=== PATIENT | female | born 1985 | race Caucasian/White ===

== ENCOUNTER 2020-05-09 14:35 | Emergency (ER) | payer OTHER, SELFPAY ==
--- NOTE | ~2020-05-09 | XR_ITS ---
XR ankle LT min 3V 05/09/2020 15:15 INDICATION: Left ankle pain after fall PROCEDURE: 4 views left ankle COMPARISON: No prior studies for comparison. FINDINGS: Fracture, dislocation or subluxation is not identified. There is mild lateral soft tissue s welling. Ankle mortise intact. No foreign bodies are identified. IMPRESSION: 1: NO ACUTE BONE OR JOINT ABNORMALITY IDENTIFIED. Reviewed, dictated and finalized at location A.
[2020-05-09 14:53] VITALS: BP 136/69; PULSE 98; RESP 20; TEMP 37.4; O2SAT 100
--- NOTE | 2020-05-09 14:59 | ED.GENADULT ---
HPI - General Adult General Chief complaint: Extremity Injury, Lower Stated complaint: L/ankle pain Source: patient Mode of arrival: wheelchair History of Present Illness HPI narrative: Patient presents for evaluation of left ankle pain. She indicates that she twisted her ankle last night when she stepped in a hole . She currently has 5 out of 10 pain in the lateral aspect of her left ankle, described as sharp and shooting. She has a tingling sensation of all digits of the left foot without any numbness. She tried taking ibuprofen and Tylenol which helped her pain. Weightbearing worsens her pain. No additional complaints or concerns. Related Data Home Medications Medication Instructions Recorded Confirmed escitalopram oxalate 10 mg DAILY 05/09/20 05/09/20 Allergies Allergy/AdvReac Type Severity Reaction Status Date / Time No Known Allergies Allergy Verified 05/09/20 14:42 Review of Systems Review of Systems: Narrative: CONSTITUTIONAL: Denies fever, chills, or sweats. EYES: Denies visual changes, redness, or discharge. ENT: Denies rhinorrhea, congestion, sore throat, or otalgia. CARDIOVASCULAR: Denies chest pain, palpitations, or edema. RESPIRATORY: Denies cough or dyspnea. GASTROINTESTINAL: Denies abdominal pain, nausea, vomiting, or diarrhea. GENITOURINARY: Denies dysuria or hematuria. SKIN: Denies rash or itching. MUSCULOSKELETAL: Denies back pain or myalgia. Reports left ankle pain and swelling NEUROLOGIC: Denies headache, numbness, dizziness, or weakness. PSYCHIATRIC: Denies anxiety or depression. [facility] Past Medical History Medical History (Updated 05/09/20 @ 15:07 by LATHA Shaw, ) No significant past medical history Surgical History Surgical History History of open heart surgery History of tonsillectomy Family History Family History Grandparent Malignant neoplasm of prostate Family history of malignant neoplasm of brain Family history of coronary artery disease Family history of malignant neoplasm of urinary bladder Diabetes mellitus Mother Family history of atrial fibrillation Other Family history of malignant neoplasm of ovary Social History Social History Alcohol intake: current Gender identity (if verbalized by the patient): Female Exam Narrative: Exam Narrative: GENERAL: Well-appearing, well-nourished, and in no acute distress. HEAD: Normocephalic, atraumatic. EYES: PERRLA and EOMI. ENT: Nares clear, no rhinorrhea or epistaxis. Mucous membranes moist. Oropharynx without tonsillar hypertrophy exudate or other lesions. Bilateral TMs pearly whitt nonbulging NECK: Supple. No adenopathy or masses. No carotid bruits or JVD CHEST: Clear to auscultation. No respiratory distress. No wheezes rales or rhonchi HEART: Regular rate and rhythm. No murmur heard. Normal peripheral pulses. ABDOMEN: Soft, nontender, nondistended, normal active bowel sounds. EXTREMITIES: Able to dorsi and plantarflex the left foot. There is trace swelling noted over the left lateral malleolus. Tenderness over left lateral malleolus. No crepitus or obvious deformity SKIN: Warm, dry, no rash. NEURO: No focal deficits. Alert and oriented x3. PSYCH: Normal mood and affect. Course Vital Signs Vital signs: Vital Signs Temperature 37.4 C 05/09/20 14:53 Pulse Rate 98 05/09/20 14:53 Respiratory Rate 05/09/20 14:53 Blood Pressure 136/69 05/09/20 14:53 Pulse Oximetry 100 05/09/20 14:53 Temperature 37.4 C 05/09/20 14:53 Pulse Rate 98 05/09/20 14:53 Respiratory Rate 05/09/20 14:53 Blood Pressure 136/69 05/09/20 14:53 Pulse Oximetry 100 05/09/20 14:53 Medical Decision Making Vital Signs Vital Signs: Vital Signs Temperature 37.4 C 05/09/20 14:53 Pulse Rate 98 0
--- NOTE | 2020-05-09 15:31 | ED.GENADULT ---
HPI - General Adult General Chief complaint: Extremity Injury, Lower Stated complaint: L/ankle pain Source: patient Mode of arrival: wheelchair History of Present Illness HPI narrative: Patient presents for evaluation of left ankle pain. She indicates she twisted her ankle last night when she tripped in a hole . She did not hit her head or have loss of consciousness. She now reports pain in the left lateral ankle, rated 5 out of 10 in severity, described as sharp and shooting. She reports tingling sensation of all digits of her left foot without associated numbness. Weightbearing and ambulation make the pain worse. She took ibuprofen and tylenol which have helped reduce her pain. Related Data Home Medications Medication Instructions Recorded Confirmed escitalopram oxalate 10 mg DAILY 05/09/20 05/09/20 Allergies Allergy/AdvReac Type Severity Reaction Status Date / Time No Known Allergies Allergy Verified 05/09/20 14:42 Review of Systems Review of Systems: Narrative: CONSTITUTIONAL: Denies fever, chills, or sweats. EYES: Denies visual changes, redness, or discharge. ENT: Denies rhinorrhea, congestion, sore throat, or otalgia. CARDIOVASCULAR: Denies chest pain, palpitations, or edema. RESPIRATORY: Denies cough or dyspnea. GASTROINTESTINAL: Denies abdominal pain, nausea, vomiting, or diarrhea. GENITOURINARY: Denies dysuria or hematuria. SKIN: Denies rash or itching. MUSCULOSKELETAL: Denies back pain and myalgia. Reports left ankle pain and swelling NEUROLOGIC: Denies headache, numbness, dizziness, or weakness. PSYCHIATRIC: Denies anxiety or depression. [facility] Past Medical History Medical History No significant past medical history Surgical History Surgical History History of open heart surgery History of tonsillectomy Family History Family History Grandparent Malignant neoplasm of prostate Family history of malignant neoplasm of brain Family history of coronary artery disease Family history of malignant neoplasm of urinary bladder Diabetes mellitus Mother Family history of atrial fibrillation Other Family history of malignant neoplasm of ovary Social History Social History Alcohol intake: current Gender identity (if verbalized by the patient): Female Exam Narrative: Exam Narrative: GENERAL: Well-appearing, well-nourished, and in no acute distress. HEAD: Normocephalic, atraumatic. EYES: PERRLA and EOMI. ENT: Nares clear, no rhinorrhea or epistaxis. Mucous membranes moist. Oropharynx without tonsillar hypertrophy exudate or other lesions. Bilateral TMs pearly whitt nonbulging NECK: Supple. No adenopathy or masses. No carotid bruits or JVD CHEST: Clear to auscultation. No respiratory distress. No wheezes rales or rhonchi HEART: Regular rate and rhythm. No murmur heard. Normal peripheral pulses. ABDOMEN: Soft, nontender, nondistended, normal active bowel sounds. EXTREMITIES: Able to dorsi and plantarflex left foot. Trace swelling in left lateral ankle. Tenderness over left lateral malleolus. No crepitus or deformity SKIN: Warm, dry, no rash. NEURO: No focal deficits. Alert and oriented x3. PSYCH: Normal mood and affect. Course Course Emergency Course: Patient declined analgesics. X-ray negative for fracture. She already has a boot, crutches, and Caden wrap at home. Vital Signs Vital signs: Vital Signs Temperature 37.4 C 05/09/20 14:53 Pulse Rate 98 05/09/20 14:53 Respiratory Rate 05/09/20 14:53 Blood Pressure 136/69 05/09/20 14:53 Pulse Oximetry 100 05/09/20 14:53 Temperature 37.4 C 05/09/20 14:53 Pulse Rate 98 05/09/20 14:53 Respiratory Rate 05/09/20 14:53 Blood Pressure 136/69 05/09/20 14:53 Pulse Oxi
== END 2020-05-09 15:41 | disposition home or self-care (01) ==
PROVIDERS: Emergency Provider Nurse Practitioner
DX: S93.402A Sprain of unspecified ligament of left ankle, initial encounter (principal); S96.912A Strain of unspecified muscle and tendon at ankle and foot level, left foot, initial encounter; W17.2XXA Fall into hole, initial encounter
CPT/HCPCS: 73610; 99213; G0463

== ENCOUNTER 2024-11-17 14:52 | Outpatient (CLI) | payer BC, SELFPAY ==
[2024-11-17 15:42] LABS: Basophils Percent Auto 0.4 % (0.2-1.2); Eosinophils Absolute Auto 0.2 K/mm3 (0-0.3); Eosinophils Percent Auto 1.8 % (0-4.4); Hematocrit 43.4 % (37.0-47.0); Hemoglobin 14.1 g/dL (12.0-15.0); Immature Granulocyte Absolute 0.04 K/mm3 (0.00-0.031); Immature Granulocyte Percent A 0.4 % (0-0.5); Lymphocytes Absolute Auto 2.63 K/mm3 (0.9-3.2); Lymphocytes Percent Auto 28.8 % (18.3-44.2); Mean Corpuscular HGB Conc 32.5 g/dl (32-36); Mean Corpuscular Hemoglobin 30.6 pg (26-34); Mean Corpuscular Volume 94.1 fl (80-100); Mean Platelet Volume 10.7 fl (7.4-10.4); Monocytes Absolute Auto 0.7 K/mm3 (0.1-0.6); Monocytes Percent Auto 7.9 % (2.6-8.5); Neutrophils Absolute Auto 5.5 K/mm3 (1.3-6.7); Neutrophils Percent Auto 60.7 % (45.5-73.1); Platelet Count Result 251 k/mm3 (150-375); Red Blood Count 4.61 M/mm3 (4.2-5.4); White Blood Count 9.1 K/mm3 (4.5-10.0)
--- OUTSIDE RECORDS SUMMARY | 2024-11-17 17:37 | XMS_ITS | Encounter Summary ---
Author Organization [facility] Address [facility] [place] [address] Care Team Providers Care Multimedia Services Coordinator Name Role Phone Elizabet Cardoso Primary Care Provider [phone] Carrie Hamm MD Primary Care Provider [phone] Vanesa Li [facility] Primary Care Provider + Encounter Details Date Type Department Care Team (Late st Contact Info) Description 02/16/2022 [employer] Message Enc [facility] Medical Group Family & Internal Medicine [address] [address] [facility] Provider results Social History Tobacco Use Types Packs/Day Years Used Date Smoking Tobacco: Some Days Cigarettes 0.3 23.2 Started: 2001 Smokeless Tobacco: Never Comments:has smoked on and o ff since age 17 Alcohol Use Standard Drinks/Week Comments Not Currently 0 (1 standard drink = 0.6 oz pur e alcohol) social 1-2 drinks PHQ-2 Answer Date Recorded PHQ-2 Score - If the patient scores above 3, please move on to questions 3-9 2 02/07/2022 Comments No Sex and Gender Information Value Date Recorded Sex Assigned at Not on file Legal Sex Female 8:13 PM CDT Gender Identity Not on file Sexual Orientation Not on file COVID-19 Exposure Response Date Recorded In the last 10 days, have yo u been in contact with someone who was confirmed or suspected to have Coronavirus/COVID-19? No / Unsure 02/07/2022 6:23 AM CDT documented as of this encounter Plan of Treatment Not on file documented as of this encounter Visit Diagnoses Not on filedocumented in this encounter Additional Health Concerns Assessment Noted Time PHQ-9 Depression Total Score: 14 021 12:30 PM CDT documented as of this encounter Care Teams Multimedia Services Coordinator Relationship Specialty Start Date End Date Elizabet Cardoso APNP [address] [facility] [address] [place] [address] PCP - General Nurse Practitioner Family 02/16/2012/11 [place] [address] [facility] [address] [place] [address] PCP - General FAMILY PRACTICE 01/08/23 10/21/23 Vanesa Li, LAMP CLEANER STREET [employer]- [address] [facility], [address] [place] [address] PCP - General NURSE PRACTITIONER 10/22/23 documented as of this encounter
--- OUTSIDE RECORDS SUMMARY | 2024-11-17 17:37 | XMS_ITS | Encounter Summary ---
Author Organization [facility] Address [facility] [place] [address] Care Team Providers Care Bounty Hunter Name Role Phone Elizabet Cardoso Primary Care Provider [phone] Carrie Hamm MD Primary Care Provider [phone] Vanesa Li [facility] Primary Care Provider + Encounter Details Date Type Department Care Team (Late st Contact Info) Description 03/28/2022 [email or web address] Message Enc [facility] Medical Group Family & Internal Medicine [facility] [address] [place] [address] Elizabet Cardoso APNP [address] [address] [employer] form Social History Tobacco Use Types Packs/Day Years [...] on file Sexual Orientation Not on file documented as of this encounter Plan of Treatment Not on file documented as of this encounter Visit Diagnoses Not on filedocumented in this encounter Additional Health Concerns Assessment Noted Time PHQ-9 Depression Total Score: 14 021 12:30 PM CDT documented as of this encounter Care Teams Bounty Hunter Relationship Specialty Start Date End Date Elizabet Cardoso APNP [address] [facility] [address] [place] [address] PCP - General Nurse Practitioner Family 02/16/2012/11 [place] [address] [facility] [address] [place] [address] PCP - General FAMILY PRACTICE 01/08/23 10/21/23 Vanesa Li, CLOTH CUTTING INSPECTOR- [address] [facility] [address] [place] [address] PCP - General NURSE PRACTITIONER 10/22/23 documented as of this encounter
--- OUTSIDE RECORDS SUMMARY | 2024-11-17 17:37 | XMS_ITS | Encounter Summary ---
Author Organization [facility] Address [facility] [place] [address] Care Team Providers Care Bolt Loader Name Role Phone Vanesa Li [facility] Primary Care Provider + Encounter Details Date Type Department Care Team (Late st Contact Info) Description 07/08/2024 [employer] Message [employer] Business Office [facility] [place] [address] [facility] Provider Action Needed Social History Tobacco Use Types Packs/Day Years Used Date Smoking Tobacco: Some Days Cigarettes 0.3 23.2 Started: 2001 Smokeless Tobacco: Never Comments:has smoked on and o ff since age 17 Alcohol Use Standard Drinks/Week Comments Not Currently 0 (1 standard drink = 0.6 oz pur e alcohol) social 1-2 drinks PHQ-2 Answer Date Recorded Patient Health Questionnaire-2 Score 1 05/15/2024 Comments No Sex and Gender Information Value [...] Assessment Noted Time PHQ-9 Depression Total Score: 12 024 7:29 AM ACADEMIC ADVISER documented as of this encounter Care Teams Bolt Loader Relationship Specialty Start Date End Date Vanesa Li, [facility] [address] [facility], [address] [place] [address] PCP - General NURSE PRACTITIONER 10/22/23 documented as of this encounter
--- OUTSIDE RECORDS SUMMARY | 2024-11-17 17:37 | XMS_ITS | Clinical Summary ---
Author Organization [facility] Address [address] [place] [address] Care Team Providers Care Security Guards Dispatcher Name Role Phone Vanesa Li [facility] Primary Care Provider + Allergies No known active allergies Medications levonorgestrel (KYLEENA) 19.5 MG IUD 1 each (19.5 mg total) by Intrauterine route once. Active rizatriptan (MAXALT) 10 MG tabletIndicatio ns:Migraine without aura and without status migrainosus, not intractable Take 1 tablet (10 mg total) by mouth as needed for Migraine. May repeat in 2 hours if needed 30 tablet 2 4 Active ubrogepant (UBRELVY) 100 MG tabletIndicatio ns:Chronic migraine with aura and with status migrainosus, not intractable Take 1 tablet (100 mg total) by mouth 2 (two) times daily as needed for Migraine. Max of 2 tablets (200 mg) in 24 hours 20 tablet 1 5 Active escitalopram (LEXAPRO) 20 MG tabletIndicatio ns:Anxiety and depression Take 1 tablet (20 mg total) by mouth daily. 90 tablet 1 5 Active topiramate (TOPAMAX) 50 MG TabIndications: Chronic migraine with aura and with status migrainosus, not intractable Take 1 tablet (50 mg total) by mouth daily. 90 tablet 1 5 Active Active Problems Problem Noted Date Diagnosed Date Dizziness of unknown cause 05/15/2022 Generalized body aches 05/11/2022 Increased frequency of headaches 04/12/2022 Ringing of ears, bilateral 04/12/2022 Anxiety and depression 02/16/2020 Primary insomnia 02/16/2020 Chronic tension-type headache, not intractable 0 02/16/2020 Resolved Problems Problem Noted Date Diagnosed Date Resolved Date Encounter for preventive health examination 01/11/2013 05/21/2020 Encounters Date Type Department Care Team Description 10/03/2024 9:00 AM PAPER FEEDER Office Visit [address] [address] Vanesa Li, [facility]- Follow Up 10/03/2024 Travel from Last 3 Months Immunizations Name Administration Dates Next Due Influenza (Generic) 07/28/2013 Influenza Adult (Generic) 07/29/2023,07/03/2022 Tdap (Adacel) 10/26/2023 Tdap (Generic) 07/28/2013 Family History Medical History Relation Comments Asthma Brother Clotting Disorder Father Depression Father Alcohol Abuse Maternal Aunt Drug Abuse Maternal Aunt Alcohol Abuse Maternal Grandfather Cancer Maternal Grandfather prostate Diabetes Maternal Grandfather Arthritis Maternal Grandmother Heart Maternal Grandmother Anxiety Mother Depression Mother Heart Mother Afib Alcohol Abuse Paternal Grandfather Cancer Paternal Grandfather prostate Cancer Paternal Grandmother brain tumor s Alcohol Abuse Paternal Uncle Depression Sister Migraines Sister Relation Status Comments Brother Father Alive Maternal Aunt Maternal Grandfather Maternal Grandmother Alive Mother Alive Paternal Grandfather Paternal Grandmother Paternal Uncle Sister Alive Social History Tobacco Use Types Packs/Day Years Used Date Smoking Tobacco: Some Days Cigarettes 0.3 23.2 Started: 2001 Smokeless Tobacco: Never Tobacco Cessation:Ready to Q uit: No; Counseling Given: Yes Comments:has smoked on and off since age 17 Alcohol Use Standard Drinks/Week Comments Not Currently 0 (1 standard drink = 0.6 oz pur e alcohol) social 1-2 drinks PHQ-2 Answer Date Recorded Patient Health Questionnaire-2 Score 0 10/03/2024 Comments No Sex and Gender Information Value Date Recorded Sex Assigned at Not on file Legal Sex Female 8:13 PM CDT Gender Identity Not on file Sexual Orientation Not on file Last Filed Vital Signs Vital Sign Reading Time Taken Comments Blood Pressure 119/76 10/03/2024 8:48 AM PAPER FEEDER Pulse 89 10/03/2024 8:48 AM PAPER FEEDER Temperature 36.4 C (97.6 F) 10/03/2024 8:48 AM PAPER FEEDER Respiratory Rate 18 10/03/2024 8:48 AM PAPER FEEDER Oxygen Saturation 98% 10/03/2024 8:48 AM PAPER FEEDER Inhaled Oxygen Concentration - - Weight 115.8 kg (255 lb 3.2 oz) 10/03/2024 8:48 AM PAPER FEEDER Height 167.6 cm (5' 6 ) 10/03/2024 8:48 AM PAPER FEEDER Body Mass Index 41.19 10/03/2024 8:48 AM PAPER FEEDER Plan of Treatment Health Maintenance Due Date Last Done Comments Cervical Cancer Screening Pa p Smear (Age 30 to 64) Every 3 Years 1986 Pneumococcal Vaccine: Pediatrics (0 to 5 Years) and At-Risk Patients (6 to 64 Years) (1 of 2 - PCV) 01/31/1992 Hepatitis B Vaccines (1 of 3 - 19+ 3-dose series) 2005 COVID-19 Vaccine (2023-2 5 season) 2024 07/29/2023, 12/04/2020, 11/09/2020 Influenza Adult (#1) 2024 07/29/2023, 07/03/2022, 07/28/2013 Annual Physical 10/26/2024 10/26/2023, 02/07/2022 Cervical Cancer Screening Pa p with HPV Testing (Age 30 to 64) Every 5 Years 05/28/2028 05/28/2023 Cervical Cancer Screening with HPV 05/28/2028 DTaP, Tdap and Td Vaccines ( 3 - Td or Tdap) 10/26/2033 10/26/2023, 07/28/2013 Hepatitis C 02/08/2052 Postponed from 01/31/2004 (Patient Refused) PHQ-2 (Physician Nikolai) Completed 10/03/2024 HPV Vaccines Aged Out No longer eligi ble based on patient's age to complete this topic Meningococcal B Vaccine Aged Out No l onger eligible based on patient's age to complete this topic Meningococcal Vaccine Aged Out No leeanna jesse eligible based on patient's age to complete this topic RSV Immunizations Under 20 Months Aged Out No longer eligible b ased on patient's age to complete this topic Procedures Procedure Name Priority Date/Time Associated Diagnosis Comments OUTSIDE CYTOPATH CERV/VAG IN TERPRET (PAP) 05/28/2023 from Last 3 Months or Most Recently Relevant to Health Maintenance Results * PAP SMEAR WITH HPV (05/28/2023) 05/28/2023 [facility] Scanned SCANNING Final Resu lt from Last 3 Months or Most Recently Relevant to Health Maintenance Insurance [facility] Care Teams Security Guards Dispatcher Relationship Specialty Start Date End Date Vanesa Li, [facility]- [address] [facility], [address] [place] [address] PCP - General NURSE PRACTITIONER 10/22/23
--- OUTSIDE RECORDS SUMMARY | 2024-11-17 17:37 | XMS_ITS | Encounter Summary ---
Author Organization [facility] Address [facility] [place] [address] Care Team Providers Care Solution Manager Name Role Phone Elizabet Cardoso Primary Care Provider [phone] Carrie Hamm MD Primary Care Provider [phone] [facility] Primary Care Provider + Encounter Details Date Type Department Care Team (Late st Contact Info) Description 12/27/2020 [email or web address] Message Enc [facility] Medical Group Family & Internal Medicine [address] [address] Narda Swan NP RE: Other Social History Tobacco Use Types Packs/Day Years Used Date Smoking Tobacco: Every Day Cigarettes Smokeless Tobacco: Never Alcohol Use Standard Drinks/Week Comments Yes 0 (1 standard drink = 0.6 oz pur e alcohol) social 1-2 drinks PHQ-2 Answer Date Recorded PHQ-2 Score - If the patient scores above 3, please move on to questions 3-9 3 02/16/2020 Comments No Sex and Gender Information Value Date Recorded Sex Assigned at Not on file Legal Sex Female 8:13 PM CDT Gender Identity Not on file Sexual Orientation Not on file documented as of this encounter Plan of Treatment Not on file documented as of this encounter Visit Diagnoses Not on filedocumented in this encounter Additional Health Concerns Infection Onset Date Last Indicated Resolved Time COVID-19 Rule Out 09/14/2021 09/14/2021 09/14/2021 4:31 PM DIRECTOR SPECIAL EDUCATION COVID-19 Confirmed 09/14/2021 09/14/2021 12:32 AM DIRECTOR SPECIAL EDUCATION documented as of this encounter Care Teams Solution Manager Relationship Specialty Start Date End Date Elizabet Cardoso APNP [address] [facility] [address] [place] [address] PCP - General Nurse Practitioner Family 02/16/2012/11 [place] [address] [address] PCP - General FAMILY PRACTICE 01/08/23 10/21/23 Vanesa Li, INSTRUMENT REPAIRER [employer]ANT- [address] [address] PCP - General NURSE PRACTITIONER 10/22/23 documented as of this encounter
--- OUTSIDE RECORDS SUMMARY | 2024-11-17 17:37 | XMS_ITS | Encounter Summary ---
Author Organization [facility] Address [facility] [place] [address] Care Team Providers Care Bus Person Name Role Phone Elizabet Cardoso Primary Care Provider [phone] Carrie Hamm MD Primary Care Provider [phone] Vanesa Li [facility] Primary Care Provider + Encounter Details Date Type Department Care Team (Late st Contact Info) Description 05/10/2021 HealthTellt Message Enc [facility] Medical Group Family & Internal Medicine - [place] [address] [place] [address] Elizabet Cardoso APNP [address] [address] RE: FW: Medication Questions Social History Tobacco Use Types Packs/Day Years Used Date Smoking Tobacco: Every Day Cigarettes 0.5 23.2 Started: 2001 Smokeless Tobacco: Never Comments:has smoked on and o ff since age 17 Alcohol Use Standard Drinks/Week Comments Yes 0 (1 standard drink = 0.6 oz pur e alcohol) social 1-2 drinks PHQ-2 Answer Date Recorded PHQ-2 Score - If the patient scores above 3, please move on to questions 3-9 2 02/16/2021 Comments No Sex and Gender Information Value Date Recorded Sex Assigned at Not on file Legal Sex Female 8:13 PM CDT Gender Identity Not on file Sexual Orientation Not on file documented as of this encounter Progress Notes * ERICA Torres - 05/10/2021 10:34 AM CDT Pt notified via Spurflyhart. * ERICA Torres - 05/10/2021 10:34 AM CDT Sent * Amy Orlando RN - 05/10/2021 10:23 AM CDT Please advise. * ERICA Torres - 05/10/2021 8:10 AM CDT I am assuming she mean xanax? Has she taken this before? If I prescribed I will give 2 doses. Thankyou. * Marva Au MA - 05/10/2021 6:57 AM CDT Please advise. documented in this encounter Plan of Treatment Not on file documented as of this encounter Visit Diagnoses Not on filedocumented in this encounter Additional Health Concerns Infection Onset Date Last Indicated Resolved Time COVID-19 Rule Out 09/14/2021 09/14/2021 09/14/2021 4:31 PM NEUROSCIENCE DIRECTOR NA COVID-19 Confirmed 09/14/2021 09/14/2021 12:32 AM NEUROSCIENCE DIRECTOR NA Assessment Noted Time PHQ-9 Depression Total Score: 14 021 12:30 PM CDT documented as of this encounter Care Teams Bus Person Relationship Specialty Start Date End Date Elizabet Cardoso APNP [address] [place] [address] PCP - General Nurse Practitioner Family 02/16/20 4/3 [place] [address] [place] [address] PCP - General FAMILY PRACTICE 01/08/23 10/21/23 Vanesa Li, [facility]- [address] [facility], [address] [place] [address] PCP - General NURSE PRACTITIONER 10/22/23 documented as of this encounter
--- OUTSIDE RECORDS SUMMARY | 2024-11-17 17:37 | XMS_ITS | Encounter Summary ---
Author Organization [facility] Address [facility] [place] [address] Care Team Providers Care Interlocking Pavement Installer Name Role Phone Elizabet Cardoso Primary Care Provider [phone] Carrie Hamm MD Primary Care Provider [phone] Vanesa Li [facility] Primary Care Provider + Encounter Details Date Type Department Care Team (Late st Contact Info) Description 03/28/2022 MyCFLX Microt Message Enc [facility] Medical Group Family & Internal Medicine [facility] [address] [place] [address] Elizabet Cardoso APNP [address] [address] Glucose Test Social History Tobacco Use Types Packs/Day Years [...] documented as of this encounter Care Teams Interlocking Pavement Installer Relationship Specialty Start Date End Date Elizabet Cardoso APNP [address] [facility] [address] [place] [address] PCP - General Nurse Practitioner Family 02/16/2012/11 [place] [address] [facility] [address] [place] [address] PCP - General FAMILY PRACTICE 01/08/23 10/21/23 Vanesa Li, QUALITATIVE EXECUTIVE RESEARCHER- [address] [facility] [address] [place] [address] PCP - General NURSE PRACTITIONER 10/22/23 documented as of this encounter
--- OUTSIDE RECORDS SUMMARY | 2024-11-17 17:37 | XMS_ITS | Encounter Summary ---
Author Organization [facility] Address [facility] [place] [address] Care Team Providers Care Supervisor Electric Motor Testing Name Role Phone Elizabet Cardoso Primary Care Provider [phone] Carrie Hamm MD Primary Care Provider [phone] Vanesa Li [facility] Primary Care Provider + Encounter Details Date Type Department Care Team (Late st Contact Info) Description 07/17/2022 Red LaGoon Message Enc [facility] Medical Group Family & Internal Medicine [address] [address] [place] Provider Escitalopram Social History Tobacco Use Types Packs/Day Years [...] documented as of this encounter Care Teams Supervisor Electric Motor Testing Relationship Specialty Start Date End Date Elizabet Cardoso APNP [address] [facility] [address] [place] [address] PCP - General Nurse Practitioner Family 02/16/20/ [place] [address] [facility] [address] [place] [address] PCP - General FAMILY PRACTICE 01/08/23 10/21/23 Vanesa Li FNP- [address] [address] PCP - General NURSE PRACTITIONER 10/22/23 documented as of this encounter
--- OUTSIDE RECORDS SUMMARY | 2024-11-17 17:37 | XMS_ITS | Encounter Summary ---
Author Organization [facility] Address [facility] [place] [address] Care Team Providers Care Abrasive Mixer Helper Name Role Phone Vanesa Li [facility] Primary Care Provider + Encounter Details Date Type Department Care Team (Late st Contact Info) Description 07/30/2024 Tizaro Message [facility] [address] [place] [address] [facility] [address] [facility], [address] [place] [address] [place] Pelvic for Sept and Nov Social History Tobacco Use Types Packs/Day Years [...] as of this encounter Progress Notes * Nubia Lopez RN - 07/30/2024 9:41 AM CST Noted and will complete D ADVISOR documented in this encounter Plan of Treatment Not on file documented as of this encounter Visit Diagnoses Not on filedocumented in this encounter Additional Health Concerns Assessment Noted Time PHQ-9 Depression Total Score: 12 024 7:29 AM FIELD ADVISOR documented as of this encounter Care Teams Abrasive Mixer Helper Relationship Specialty Start Date End Date Vanesa Li, BEAD FORMING MACHINE SET UP OPERATOR- [address] [facility], [address] [place] [address] PCP - General NURSE PRACTITIONER 10/22/23 documented as of this encounter
--- OUTSIDE RECORDS SUMMARY | 2024-11-17 17:37 | XMS_ITS | Encounter Summary ---
Author Organization [facility] Address [facility] [place] [address] Care Team Providers Care Area Plant Manager Name Role Phone Elizabet Cardoso Primary Care Provider [phone] Carrie Hamm MD Primary Care Provider [phone] Vanesa Li [facility] Primary Care Provider + Encounter Details Date Type Department Care Team (Late st Contact Info) Description 02/09/2022 NanoHorizons Message Enc [facility] Medical Group Family & Internal Medicine [address] [address] [facility] Provider form Social History Tobacco Use Types Packs/Day [...] documented as of this encounter Care Teams Area Plant Manager Relationship Specialty Start Date End Date Elizabet Cardoso APNP [address] [facility] [address] [place] [address] PCP - General Nurse Practitioner Family 02/16/2012/11 [place] [address] [facility] [address] [place] [address] PCP - General FAMILY PRACTICE 01/08/23 10/21/23 Vanesa Li, KNITTER HAND- [address] [facility], [address] [place] [address] PCP - General NURSE PRACTITIONER 10/22/23 documented as of this encounter
--- OUTSIDE RECORDS SUMMARY | 2024-11-17 17:37 | XMS_ITS | Encounter Summary ---
Author Organization [facility] Address [facility] [place] [address] Care Team Providers Care Certified Ski Patroller Name Role Phone Vanesa Li [facility] Primary Care Provider + Encounter Details Date Type Department Care Team (Late st Contact Info) Description 05/05/2024 Qardio Message [facility] [address] [place] [address] Vanesa Li [facility] [address] [facility], [address] [place] [address] Medical Concerns Social History Tobacco Use Types Packs/Day Years Used Date Smoking Tobacco: Some Days Cigarettes 0.3 23.2 Started: 2001 Smokeless Tobacco: Never Comments:has smoked on and o ff since age 17 Alcohol Use Standard Drinks/Week Comments Not Currently 0 (1 standard drink = 0.6 oz pur e alcohol) social 1-2 drinks PHQ-2 Answer Date Recorded Patient Health Questionnaire-2 Score 1 10/26/2023 Comments No Sex and Gender Information Value [...] Depression Total Score: 12 024 7:29 AM PLAN CHECKER documented as of this encounter Care Teams Certified Ski Patroller Relationship Specialty Start Date End Date Vanesa Li [facility] [address] [facility], [address] [place] [address] PCP - General NURSE PRACTITIONER 10/22/23 documented as of this encounter
--- OUTSIDE RECORDS SUMMARY | 2024-11-17 17:37 | XMS_ITS | Clinical Summary ---
Author Organization [facility] Care Team Providers Care Disk Sander Name Role Phone Unavailable Primary Care Provider Unavailabl e Social History Tobacco Use Types Packs/Day Years Used Date Smoking Tobacco: Never Assessed Comments Unknown Sex and Gender Information Value Date Recorded Sex Assigned at Not on file Legal Sex Female 10:10 AM SURVEY AND MAPPING TECHNICIAN Gender Identity Not on file Sexual Orientation Not on file Plan of Treatment Health Maintenance Due Date Last Done Comments Hepatitis C Virus (HCV) Screening 1986 Hepatitis B Immunization (1 of 3 - 19+ 3-dose series) 2005 Pap Smear 2007 Cervical Cancer Screening (CCS) 01/31/2016 HPV/Cotest 01/31/2016 Influenza Immunization (#1) 2024 SARS-COV-2 Immunization ( season) 2024 Respiratory Syncytial Virus (RSV) Immunization (Adult) (1 - 1-dose 75+ series) 2061 DTaP/Tdap/Td Immunization Discontinued 07/28/2013 TdaP Immunization Completed 07/28/2013 Meningococcal Immunization (ACWY) Aged Out No longer eligible based on patient's age to complete this topic Pneumococcal Immunization Combined Aged Out No longer eligible b ased on patient's age to complete this topic Rotavirus Immunization Aged Out No lo nger eligible based on patient's age to complete this topic
== END 2024-11-17 14:53 | disposition home or self-care (01) ==
PROVIDERS: Visit Provider Obstetrics & Gynecology
DX: R10.2 Pelvic and perineal pain (principal)
CPT/HCPCS: 36415; 85025; 86850; 86900; 86901

== ENCOUNTER 2024-11-21 00:56 | Day surgery (SDC) | payer BC, SELFPAY ==
[2024-11-13 13:59] VITALS: BMI 40.4
--- NOTE | 2024-11-13 14:07 | PC.NURSE ---
Report to the Outpatient Waiting Room, entrance under the green pavilion located off [facility], at time _0600_ on date _[id number]_. Planned Procedure Time: _0730_.? Time changes happen often and if your time is changed the preop area will call you the afternoon before. - You and your visitor will be asked to self-screen and do not enter if you have any COVID symptoms. Please call surgeon if you need to reschedule. - A mask is optional within the hospital at this time. Patients may have clear liquids (water, carbonated beverages, clear teas, apple juice) until 3 hours prior to surgery with a maximum of 20 ounces. - No food from midnight until time of surgery and no smoking, or chewing tobacco (or any form of nicotine). No chewing gum, candy or mints. Take only the following medications with a SIP of water on the morning of surgery: __None DO NOT STOP ANY OF YOUR OTHER PRESCRIPTION MEDICATIONS PRIOR TO SURGERY EXCEPT THE FOLLOWING Hold all vitamins and supplements for 3 days per anesthesiologist. Medications to discontinue per physician Date to take last dose Please no make-up, nail greenlandic, hairspray, perfume, deodorant, or body powder the day of surgery.? No jewelry (including any body piercings) or valuables the day of surgery, leave them at home.? Please take a shower or bath the night before, or the morning of, surgery with an antibacterial soap.? Wear comfortable, loose fitting clothing.? - Jewelry must be removed prior to entering the operating room.? Rings and piercings that are not removed may be cut off. - The hospital will not accept responsibility for valuables.? - Please leave all valuables, including medications, at home the day of surgery. If you are going home after surgery, a licensed local combination truck driver must drive you home.? - NO public transportation without another adult if you receive anesthesia. - We recommend that an adult stay with you for 24 hours following discharge. - We also recommend that you do not drive, make important decision, drink alcoholic beverages, or take any drugs that were not prescribed by your health care provider for at least 24 hours after your discharge time. Follow any additional instructions given to you from your surgeon. Telephone instructions given to __Marva___and asked if any additional questions and then verbalized understanding. Patient advised to call surgeon office or pre surgery nurse liaison [phone] if any additional questions.
--- NOTE | 2024-11-18 12:18 | P.HP_ITS ---
H&P: HPI History of Present Illness Date/Time: 11/18/24 12:18 Chief Complaint: Pelvic pain/excessive bleeding/dyspareunia Narrative: This is a [age]-year-old 3 para 3 admitted for robotic total vaginal hyst erectomy bilateral salpingectomy secondary to pelvic pain and bleeding. She has had severe dyspareunia as well. Ultrasound was negative she has an IUD it is in the correct spot she continues have pain discomfort and dyspareunia she understands this will make her permanently infertile. The ovaries will stay if they look normal. Risks and benefits reviewed including not exclusive of , aspiration pneumonia, bleeding, transfusion, perforation injury to bowel, bladder, ureters, or other internal organs with need for open laparotomy. She received the ACOG handout entitled hysterectomy as well as the de Valdo handout. She had all questions answered and asked to proceed Review of Systems Review of Systems: CONSTITUTIONAL: Denies fever, chills, or sweats. EYES: Denies visual changes, redness, or discharge. ENT: Denies rhinorrhea, congestion, sore throat, or otalgia. CARDIOVASCULAR: Denies chest pain, palpitations, or edema. RESPIRATORY: Denies cough or dyspnea. GASTROINTESTINAL: Denies abdominal pain, nausea, vomiting, or diarrhea. GENITOURINARY: Denies dysuria or hematuria. SKIN: Denies rash or itching. MUSCULOSKELETAL: Denies back pain and myalgia. Reports left ankle pain and swelling NEUROLOGIC: Denies headache, numbness, dizziness, or weakness. PSYCHIATRIC: Denies anxiety or depression. [facility] Past Medical History Medical History (Updated 11/18/24 @ 12:20 by Sav Hemphill MD) No significant past medical history Surgical History Surgical History History of open heart surgery History of tonsillectomy Family History Family History Grandparent Malignant neoplasm of prostate Family history of malignant neoplasm of brain Family history of coronary artery disease Family history of malignant neoplasm of urinary bladder Diabetes mellitus Mother Family history of atrial fibrillation Other Family history of malignant neoplasm of ovary Social History Social History Years smoked: 20 Smoking status: Current every day smoker Tobacco type: cigarettes Alcohol intake: current Living arrangements: with family Gender identity (if verbalized by the patient): Female Spiritual care concerns: No Meds Home Medications and Allergies Home Medications ?Medication ?Instructions ?Recorded ?Confirmed ?Type escitalopram oxalate 10 mg tablet 10 mg PO HS 05/09/20 11/13/24 History magnesium gluconate 27 mg 27 mg PO HS 11/13/24 11/13/24 History magnesium (500 mg) tablet topiramate 50 mg tablet 50 mg PO HS 11/13/24 11/13/24 History Allergies Allergy/AdvReac Type Severity Reaction Status Date / Time No Known Allergies Allergy Verified 11/13/24 13:57 Exam Const: General: cooperative, healthy appearing and comfortable Orientation/consciousness: oriented to person, oriented to place and oriented to time HENMT: Head: normal to inspection Resp: Effort & Inspection: normal respiratory effort Cardio: Rate: regular rate Rhythm: regular rhythm Heart sounds: S1 normal heart sound present and S2 normal heart sound present GI: Inspection: normal to inspection : External Female Exam: normal external appearance Speculum Exam - Vagina: normal appearance of the vagina Speculum Exam - Cervix: normal appearance of the cervix Bimanual exam- vagina & uterus: enlarged and Uterine tenderness Bimanual Exam- Adnexa, other: normal adnexae Assessment and Plan Assessment and plan (1) Pelvic pain: Code(s): R10.2 - Pelvic and perineal pain Status: Acute (2) Excessive bleeding: Code(s): R58 - Hemorrhage, not elsewhere classified Status: Acute (3) Dyspareunia: Status: Acute Plan Proceed with robotic total vaginal hysterectomy and bilateral salpingectomy
[2024-11-21] VITALS (10 sets, daily range): BP systolic 104–134; BP diastolic 60–76; PULSE 54–98; RESP 16–18; TEMP 36.1–36.7; O2SAT 95–99; BMI 40.6
--- OUTSIDE RECORDS SUMMARY | 2024-11-21 00:58 | XMS_ITS | Encounter Summary ---
Author Organization [facility] Address [facility] [place] [address] Care Team Providers Care Process Design Chemical Engineer Name Role Phone Elizabet Cardoso Primary Care Provider [phone] Carrie Hamm MD Primary Care Provider [phone] Vanesa Li [facility] Primary Care Provider + Encounter Details Date Type Department Care Team (Late st Contact Info) Description 02/16/2022 Wireless Generation Message Enc [facility] Medical Group Family & Internal Medicine [address] [address] [facility] Provider results Social History Tobacco Use [...] documented as of this encounter Care Teams Process Design Chemical Engineer Relationship Specialty Start Date End Date Elizabet Cardoso APNP [address] [facility] [address] [place] [address] PCP - General Nurse Practitioner Family 02/16/2012/11 [place] [address] [facility] [address] [place] [address] PCP - General FAMILY PRACTICE 01/08/23 10/21/23 Vanesa Li, SCRUB NURSE- [address] [facility], [address] [place] [address] PCP - General NURSE PRACTITIONER 10/22/23 documented as of this encounter
--- OUTSIDE RECORDS SUMMARY | 2024-11-21 00:58 | XMS_ITS | Encounter Summary ---
Author Organization [facility] Address [facility] [place] [address] Care Team Providers Care Creel Operator Name Role Phone Vanesa Li [facility] Primary Care Provider + Encounter Details Date Type Department Care Team (Late st Contact Info) Description 05/05/2024 Afterschool.me Message [facility] [address] [place] [address] Vanesa Li [facility] [address] [facility], [address] [place] [address] Medical Concerns Social History Tobacco [...] Depression Total Score: 12 024 7:29 AM SENIOR ACCOUNTANT ANALYST documented as of this encounter Care Teams Creel Operator Relationship Specialty Start Date End Date Vanesa Li [facility] [address] [facility], [address] [place] [address] PCP - General NURSE PRACTITIONER 10/22/23 documented as of this encounter
--- OUTSIDE RECORDS SUMMARY | 2024-11-21 00:58 | XMS_ITS | Encounter Summary ---
Author Organization [facility] Address [facility] [place] [address] Care Team Providers Care Seismograph Shooter Name Role Phone Elizabet Cardoso Primary Care Provider [phone] Carrie Hamm MD Primary Care Provider [phone] Vanesa Li [facility] Primary Care Provider + Encounter Details Date Type Department Care Team (Late st Contact Info) Description 02/09/2022 Business Engine Message Enc [facility] Medical Group Family & Internal Medicine [address] [address] [facility] Provider form Social History Tobacco Use Types [...] documented as of this encounter Care Teams Seismograph Shooter Relationship Specialty Start Date End Date Elizabet Cardoso APNP [address] [facility] [address] [place] [address] PCP - General Nurse Practitioner Family 02/16/2012/11 [place] [address] [facility] [address] [place] [address] PCP - General FAMILY PRACTICE 01/08/23 10/21/23 Vanesa Li, OUTSOLE CASER- [address] [facility], [address] [place] [address] PCP - General NURSE PRACTITIONER 10/22/23 documented as of this encounter
--- OUTSIDE RECORDS SUMMARY | 2024-11-21 00:58 | XMS_ITS | Encounter Summary ---
Author Organization [facility] Address [facility] [place] [address] Care Team Providers Care Educational Administrator Name Role Phone Vanesa Li [facility] Primary Care Provider + Encounter Details Date Type Department Care Team (Late st Contact Info) Description 07/30/2024 Uranium Energy Message [facility] [address] [place] [address] [facility] [address] [facility], [address] [place] [address] [place] Pelvic for Sept and [...] 9:41 AM CST Noted and will complete ING FURNACE FEEDER documented in this encounter Plan of Treatment Not on file documented as of this encounter Visit Diagnoses Not on filedocumented in this encounter Additional Health Concerns Assessment Noted Time PHQ-9 Depression Total Score: 12 024 7:29 AM BRAZING FURNACE FEEDER documented as of this encounter Care Teams Educational Administrator Relationship Specialty Start Date End Date Vanesa Li, BAIL AGENT- [address] [facility], [address] [place] [address] PCP - General NURSE PRACTITIONER 10/22/23 documented as of this encounter
--- OUTSIDE RECORDS SUMMARY | 2024-11-21 00:58 | XMS_ITS | Clinical Summary ---
Author Organization [facility] Address [address] [place] [address] Care Team Providers Care Digital Specialist Name Role Phone Vanesa Li [facility] Primary Care Provider + Allergies No known [...] Department Care Team Description 10/03/2024 9:00 AM ANALOG IC DESIGN ENGINEER Office Visit [address] [address] Vanesa Li, [facility]- Follow Up 10/03/2024 Travel from Last 3 [...] Comments Blood Pressure 119/76 10/03/2024 8:48 AM ANALOG IC DESIGN ENGINEER Pulse 89 10/03/2024 8:48 AM ANALOG IC DESIGN ENGINEER Temperature 36.4 C (97.6 F) 10/03/2024 8:48 AM ANALOG IC DESIGN ENGINEER Respiratory Rate 18 10/03/2024 8:48 AM ANALOG IC DESIGN ENGINEER Oxygen Saturation 98% 10/03/2024 8:48 AM ANALOG IC DESIGN ENGINEER Inhaled Oxygen Concentration - - Weight 115.8 kg (255 lb 3.2 oz) 10/03/2024 8:48 AM ANALOG IC DESIGN ENGINEER Height 167.6 cm (5' 6 ) 10/03/2024 8:48 AM ANALOG IC DESIGN ENGINEER Body Mass Index 41.19 10/03/2024 8:48 AM ANALOG IC DESIGN ENGINEER Plan of Treatment Health Maintenance Due Date [...] Postponed from 01/31/2004 (Patient Refused) PHQ-2 (Physician Robinson) Completed 10/03/2024 HPV Vaccines Aged Out No [...] Most Recently Relevant to Health Maintenance Insurance [facility] Care Teams Digital Specialist Relationship Specialty Start Date End Date Vanesa Li, [facility]- [address] [facility], [address] [place] [address] PCP - General NURSE PRACTITIONER 10/22/23
--- OUTSIDE RECORDS SUMMARY | 2024-11-21 00:58 | XMS_ITS | Encounter Summary ---
Author Organization [facility] Address [facility] [place] [address] Care Team Providers Care Concrete Boom Pump Operator Name Role Phone Elizabet Cardoso Primary Care Provider [phone] Carrie Hamm MD Primary Care Provider [phone] Vanesa Li [facility] Primary Care Provider + Encounter Details Date Type Department Care Team (Late st Contact Info) Description 05/10/[address] [facility] Medical Group Family & Internal Medicine - [place] [address] [place] [address] Elizabet Cardoso APNP [address] [address] RE: FW: Medication Questions Social [...] 05/10/2021 10:34 AM CDT Pt notified via QR Artisthart. * ERICA Torres - 05/10/2021 10:34 AM [...] Rule Out 09/14/2021 09/14/2021 09/14/2021 4:31 PM AUDIT SPEC COVID-19 Confirmed 09/14/2021 09/14/2021 12:32 AM AUDIT SPEC Assessment Noted Time PHQ-9 Depression Total Score: 14 021 12:30 PM CDT documented as of this encounter Care Teams Concrete Boom Pump Operator Relationship Specialty Start Date End Date Elizabet Cardoso APNP [address] [place] [address] PCP - General Nurse Practitioner Family 02/16/20 4/3 [place] [address] [address] [place] [address] PCP - General FAMILY PRACTICE 01/08/23 10/21/23 Vanesa Li, [facility]- [address], [address] [place] [address] PCP - General NURSE PRACTITIONER 10/22/23 documented as of this encounter
--- OUTSIDE RECORDS SUMMARY | 2024-11-21 00:58 | XMS_ITS | Encounter Summary ---
Author Organization [facility] Address [facility] [place] [address] Care Team Providers Care Traffic Coordinator Name Role Phone Elizabet Cardoso Primary Care Provider [phone] Carrie Hamm MD Primary Care Provider [phone] Vanesa Li [facility] Primary Care Provider + Encounter Details Date Type Department Care Team (Late st Contact Info) Description 03/28/[address] [facility] Medical Group Family & Internal Medicine [facility] [address] [place] [address] Elizabet Cardoso APNP [address] [address] [employer] form Social History Tobacco [...] documented as of this encounter Care Teams Traffic Coordinator Relationship Specialty Start Date End Date Elizabet Cardoso APNP [address] [facility] [address] [place] [address] PCP - General Nurse Practitioner Family 02/16/2012/11 [place] [address] [facility] [address] [place] [address] PCP - General FAMILY PRACTICE 01/08/23 10/21/23 Vanesa Li, SENIOR RESERVOIR ENGINEER- [address] [facility] [address] [place] [address] PCP - General NURSE PRACTITIONER 10/22/23 documented as of this encounter
--- OUTSIDE RECORDS SUMMARY | 2024-11-21 00:58 | XMS_ITS | Encounter Summary ---
Author Organization [facility] Address [facility] [place] [address] Care Team Providers Care Supervisor Force Adjustment Name Role Phone Elizabet Cardoso Primary Care Provider [phone] Carrie Hamm MD Primary Care Provider [phone] Vanesa Li [facility] Primary Care Provider + Encounter Details Date Type Department Care Team (Late st Contact Info) Description 12/27/2020 [employer] Message Enc [facility] Medical Group Family & Internal Medicine [address] [address] Narda Swan NP RE: Other [...] Rule Out 09/14/2021 09/14/2021 09/14/2021 4:31 PM COMPLIANCE FIELD TECHNICIAN COVID-19 Confirmed 09/14/2021 09/14/2021 12:32 AM COMPLIANCE FIELD TECHNICIAN documented as of this encounter Care Teams Supervisor Force Adjustment Relationship Specialty Start Date End Date Elizabet Cardoso APNP [address] [facility] [address] [place] [address] PCP - General Nurse Practitioner Family 02/16/2012/11 [place] [address] [address] PCP - General FAMILY PRACTICE 01/08/23 10/21/23 Vanesa Li, DATA PROGRAMMER- [address] [address] PCP - General NURSE PRACTITIONER 10/22/23 documented as of this encounter
--- OUTSIDE RECORDS SUMMARY | 2024-11-21 00:58 | XMS_ITS | Clinical Summary ---
Author Organization [facility] Care Team Providers Care Neurology Hospitalist Name Role Phone Unavailable Primary Care Provider Unavailabl e Social History Tobacco Use Types Packs/Day Years Used Date Smoking Tobacco: Never Assessed Comments Unknown Sex and Gender Information Value Date Recorded Sex Assigned at Not on file Legal Sex Female 10:10 AM DETECTIVE CAPTAIN Gender Identity Not on file Sexual Orientation [...]
--- OUTSIDE RECORDS SUMMARY | 2024-11-21 00:58 | XMS_ITS | Encounter Summary ---
Author Organization [facility] Address [facility] [place] [address] Care Team Providers Care Baseboard Heating Installer Name Role Phone Elizabet Cardoso Primary Care Provider [phone] Carrie Hamm MD Primary Care Provider [phone] Vanesa Li [facility] Primary Care Provider + Encounter Details Date Type Department Care Team (Late st Contact Info) Description 07/17/2022 [employer] Message Enc [facility] Medical Group Family & Internal Medicine [address] [address] [place], [facility] Provider Escitalopram Social History Tobacco Use Types [...] documented as of this encounter Care Teams Baseboard Heating Installer Relationship Specialty Start Date End Date Elizabet Cardoso APNP [address] [facility] [address] [place] [address] PCP - General Nurse Practitioner Family 02/16/20/ [place] [address] [facility] [address] [place] [address] PCP - General FAMILY PRACTICE 01/08/23 10/21/23 Vanesa Li FNP- [address] [address] PCP - General NURSE PRACTITIONER 10/22/23 documented as of this encounter
--- OUTSIDE RECORDS SUMMARY | 2024-11-21 00:58 | XMS_ITS | Encounter Summary ---
Author Organization [facility] Address [facility] [place] [address] Care Team Providers Care Apartment Maintenance Worker Name Role Phone Elizabet Cardoso Primary Care Provider [phone] Carrie Hamm MD Primary Care Provider [phone] Vanesa Li [facility] Primary Care Provider + Encounter Details Date Type Department Care Team (Late st Contact Info) Description 03/28/2022 [email or web address] Message Enc [facility] Medical Group Family & Internal Medicine [facility] [address] [place] [address] Elizabet Cardoso APNP [address] [address] Glucose Test Social History Tobacco [...] documented as of this encounter Care Teams Apartment Maintenance Worker Relationship Specialty Start Date End Date Elizabet Cardoso APNP [address] [facility] [address] [place] [address] PCP - General Nurse Practitioner Family 02/16/2012/11 [place] [address] [facility] [address] [place] [address] PCP - General FAMILY PRACTICE 01/08/23 10/21/23 Vanesa Li, COMMUNITY CENTER WORKER- 9401 [facility] [address] [place] [address] PCP - General NURSE PRACTITIONER 10/22/23 documented as of this encounter
--- OUTSIDE RECORDS SUMMARY | 2024-11-21 00:58 | XMS_ITS | Encounter Summary ---
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
[2024-11-21] MEDS: LACTATED RINGERS 1,000 ML 30 ML IV CONT ×2 (06:20→08:49)
[2024-11-21] MEDS: SCOPOLAMINE 1 MG PATCH 1 PATCH TRANSDERM (06:38)
[2024-11-21] MEDS: ACETAMINOPHEN 500 MG TABLET 1000 MG PO ×4 (06:38→23:22)
[2024-11-21] MEDS: KETOROLAC 15 MG/ML VIAL (*BKC) IV PUSH (06:38)
--- NOTE | 2024-11-21 06:42 | P.PNAN_ITS ---
Anes - Initial Pre Proc Eval Procedure: Operation Date: 11/21/24 07:30 Proposed Procedures p Robotic Assisted Total Vaginal Hysterectomy with Bilateral Salpingectomy - Sav Hemphill MD Date/Time: 11/21/24 06:42 Surgeon: Sav Hemphill MD Pre Op Diagnosis: Pelvic Pain Irg Bleed, Dyspareunia Patient Data Age: 39 Gender: F Height: 1.68 m Weight: 113.6 kg Allergies Allergy/AdvReac Type Severity Reaction Status Date / Time No Known Allergies Allergy Verified 11/21/24 06:44 Home Medications ?Medication ?Instructions ?Recorded ?Confirmed ?Type escitalopram oxalate 10 mg tablet 10 mg PO HS 05/09/20 11/13/24 History magnesium gluconate 27 mg 27 mg PO HS 11/13/24 11/13/24 History magnesium (500 mg) tablet topiramate 50 mg tablet 50 mg PO HS 11/13/24 11/13/24 History Patient hx anesthesia problems: none Family hx anesthesia problems: none Results Review: All pre-operative results and documents have been reviewed as part of the pre- operative evaluation. [facility] Past Medical History Medical History (Updated 11/21/24 @ 06:42 by Sav Mckay MD) Morbid obesity Surgical History Surgical History History of open heart surgery History of tonsillectomy Family History Family History Grandparent Malignant neoplasm of prostate Family history of malignant neoplasm of brain Family history of coronary artery disease Family history of malignant neoplasm of urinary bladder Diabetes mellitus Mother Family history of atrial fibrillation Other Family history of malignant neoplasm of ovary Social History Social History Years smoked: 20 Smoking status: Current every day smoker Tobacco type: cigarettes Alcohol intake: current Living arrangements: with family Gender identity (if verbalized by the patient): Female Spiritual care concerns: No Anes - Eval Final PreProcedure Day of Procedure 11/21/24 06:42 Patient weight: morbidly obese Heart: regular rate and rhythm Lungs: clear to auscultation Airway: Mallampati scale class II Neurological: alert and oriented Last oral intake: >/= 8 hours ASA classification: III Emergent: no Anesthetic plan: proceed Anesthesia type and monitoring: general ETT and standard monitoring Results Review: All pre-operative results and documents have been reviewed as part of the pre-operative evaluation. Informed Consent: The patient's anesthetic plan and its attendant risks and benefits were discussed with the patient/family/POA. Questions were solicited and answers provided to the satisfaction of the patient/family/POA.
[2024-11-21 06:48] LABS: BEDSIDEPREGUCG Negative (Negative)
--- NOTE | 2024-11-21 07:05 | SUR.PREOP ---
Patient noted to have redness to skin of left groin area- irritated skin is not currently open.
--- NOTE | 2024-11-21 07:18 | WPDHPUPDATE1 ---
History and Physical Update Update Date/Time: 11/21/24 07:18 History and Physical has been reviewed, including an updated exam of the patient. There are NO changes in the patient's condition. Risks, benefits, and alternatives have been discussed and questions answered. Patient agrees to proceed with procedure.
[2024-11-21] MEDS: ceFAZolin 2 GM/D5W 50 ML 2 GM/50 ML BAG IVPB (07:24)
--- NOTE | 2024-11-21 08:23 | P.OP_ITS ---
Procedure Note - Detailed Date of Procedure 11/21/24 Pre-op Diagnosis Pelvic Pain Irg Bleed, Dyspareunia Post-op Diagnosis Same Procedure Performed Robotic total vaginal hysterectomy salpingectomy Surgeon Sav Hemphill MD Anesthesia General Indications 39-year-old female with bleeding pain dyspareunia Findings Enlarged uterus. Normal-appearing ovaries tubes. Description of Procedure Patient was prepped draped in the normal sterile fashion placed dorsal lithotomy position placed posterior the cervix grasped with single-tooth the uterus to 11cm. Serial dilatation with fragmented dilators performed followed by passes 10. And the 3. Cold cup. Next the 16 German catheter was placed in bladder. The weighted speculum and single-tooth removed. Gloves were changed A supraumbilical incision made the Veress needle passed in the abdomen. Abdomen filled with CO2 gas [id number]. The 8mm trocar advanced in the abdomen. Downside visualized no injury seen. Patient placed in Trendelenburg and right left lateral quadrant incision made the 8mm trocars advanced under direct visualization assuring no injury. Right upper quadrant incision made the 8mm trocar advanced under direct visualization assuring no injury. The robot was docked. Attention was turned to the personal financial counselor. The left round ligament grasped, burned, cut. Next the bladder flap was formed by sharply dissecting the peritoneum and reflecting the bladder caudally away from the cervix uterus the opposite round ligament which was clamped, burned, cut. Next to remove the fallopian tube it was sharply dissected away from the left ovarian complex and left attached at its uterine origin. In similar fashion the right fallopian tube was sharply dissected away from the right ovary and left attached to its uterine origin. Next the utero-ovarian ligament was skeletonized on the left to conserve the left ovary clamped, burned, cut and brought to level of previously cut round ligament. In similar fashion the utero-ovarian ligament on the right was skeletonized to conserve the right ovary was clamped, burned, cut. Next the cardinal broad ligaments on the left were serially skeletonized clamping burning cutting and bringing this down the lateral edge of the uterus until the large tortuous vessels were seen on the left these were clamped, burned, cut. In similar fashion the cardinal broad ligaments on the right were skeletonized clamping burning cutting and hugging the cervix uterus until the large uterine vessels could be seen on the right these were individually clamped, burned, cut. Excellent blanching the uterus was noted and a colpotomy incision made. Cervix uterus and tubes removed through the vagina. The vagina then closed with continuous running 0V lock from lateral edge to lateral edge back to midline. Irrigation undertaken to clear and [place] term placed over the raw surface area. The robot was undocked blood loss was estimated 25cc the instruments were removed after gas removed from the abdomen the patient was awakened went recovery in satisfactory condition. All sponge, needle, instrument counts were correct. There were no immediate complications Estimated Blood Loss 25 Drains No Packing No Pathology Yes Complications No immediate complications Condition Stable Disposition PACU
--- NOTE | 2024-11-21 08:30 | PM.DS ---
DS: Admitting Diagnosis Discharge Date Admitting Diagnosis Pelvic pain/S excellent bleeding/enlarged uterus DS: Discharge Diagnosis Discharge Diagnosis (1) Pelvic pain: Code(s): R10.2 - Pelvic and perineal pain Status: Acute (2) Excessive bleeding: Code(s): R58 - Hemorrhage, not elsewhere classified Status: Acute (3) Dyspareunia: Status: Acute DS: Summary Hospital Course Reason for hospitalization: Patient was admitted for robotic total vaginal hysterectomy bilateral salpingectomy on 11/21/2024 Hospital Course: Patient's hospital course was unremarkable. She remained afebrile. She was up, voiding without difficulty, eating regular diet, ambulating, and generally without complaints. Time Spent with Patient Time attestation: Total time spent providing and/or coordinating discharge services: Exam Const: General: cooperative, healthy appearing and comfortable Nutritional Appearance: average body habitus Orientation/consciousness: oriented to person, oriented to place and oriented to time HENMT: Head: normal to inspection Resp: Effort & Inspection: normal respiratory effort Cardio: Rate: regular rate Rhythm: regular rhythm Heart sounds: S1 normal heart sound present and S2 normal heart sound present GI: Inspection: normal to inspection and incision (Wounds are clean dry and intact) DS: Data Data Completed and Pending Pending studies at discharge: Pending at discharge 11/21/24 08:27 Surgical [PTH] Routine Labs on day of discharge: Labs from last 24 hours 11/21/24 06:15 POC Urine HCG, Qual Negative Discharge Plan Discharge Patient Disposition: Home, Self-Care Discharge Instructions: Remove the Scopolamine patch that was placed behind your ear in 72 hours or less. Wash your hands after touching. Patient Language: Korean Stand Alone Forms: General Discharge Instructions Follow-up/Referrals: Sav Amato MD [Physician] - Discharge Medications: New hydrocodone-acetaminophen 5-325 mg tablet 1 tablet PO Q4H PRN (Reason: pain) Qty: 20 0RF Continued escitalopram oxalate 10 mg tablet 10 mg PO HS topiramate 50 mg tablet 50 mg PO HS magnesium gluconate 27 mg magnesium (500 mg) tablet 27 mg PO HS
[2024-11-21] MEDS: fentaNYL CITRATE INJ (*CRX) 100 MCG/2 ML VIAL 25 MCG IV PUSH ×3 (09:16→09:54)
--- NOTE | 2024-11-21 10:02 | PC.NURSE ---
This patient, Marva Cano, was received from PACU on 11/21/24 at 1002. Patient/family oriented to unit policies and routines
[2024-11-21] MEDS: DEXTROSE 5%/LACTATED RINGERS 1,000 ML 125 ML IV CONT (10:37)
[2024-11-21] MEDS: DOCUSATE SODIUM 100 MG CAPSULE PO ×2 (11:51→17:49)
[2024-11-21] MEDS: SIMETHICONE 80 MG TAB.CHEW PO ×2 (11:51→16:33)
[2024-11-21] MEDS: KETOROLAC 30 MG/ML VIAL (*BKC) IV PUSH ×3 (11:52→23:24)
[2024-11-21] MEDS: oxyCODONE HCL (*CRX) 5 MG TAB IR PO ×2 (16:33→20:01)
[2024-11-21] MEDS: ENOXAPARIN 40 MG/0.4 ML SYRINGE SUB-Q (16:33)
[2024-11-22] MEDS: oxyCODONE HCL (*CRX) 5 MG TAB IR PO (02:52)
[2024-11-22 04:15] VITALS: BP 102/60; PULSE 60; RESP 16; TEMP 36.4; O2SAT 96
[2024-11-22 05:09] LABS: Basophils Percent Auto 0.1 % (0.2-1.2); Hematocrit 40.1 % (37.0-47.0); Hemoglobin 13.3 g/dL (12.0-15.0); Immature Granulocyte Absolute 0.09 K/mm3 (0.00-0.031); Immature Granulocyte Percent A 0.6 % (0-0.5); Lymphocytes Absolute Auto 1.48 K/mm3 (0.9-3.2); Lymphocytes Percent Auto 9.1 % (18.3-44.2); Mean Corpuscular HGB Conc 33.2 g/dl (32-36); Mean Corpuscular Hemoglobin 31.4 pg (26-34); Mean Corpuscular Volume 94.6 fl (80-100); Mean Platelet Volume 11.1 fl (7.4-10.4); Monocytes Absolute Auto 0.8 K/mm3 (0.1-0.6); Monocytes Percent Auto 4.9 % (2.6-8.5); Neutrophils Absolute Auto 13.9 K/mm3 (1.3-6.7); Neutrophils Percent Auto 85.3 % (45.5-73.1); Platelet Count Result 259 k/mm3 (150-375); Red Blood Count 4.24 M/mm3 (4.2-5.4); Red Cell Distribution Width 13.8 % (11.5-14.5); White Blood Count 16.2 K/mm3 (4.5-10.0)
[2024-11-22] MEDS: ACETAMINOPHEN 500 MG TABLET 1000 MG PO (06:48)
[2024-11-22] MEDS: IBUPROFEN 600 MG TABLET PO (06:49)
[2024-11-22] MEDS: DOCUSATE SODIUM 100 MG CAPSULE PO (06:50)
[2024-11-22] MEDS: ENOXAPARIN 40 MG/0.4 ML SYRINGE SUB-Q (06:50)
[2024-11-22] MEDS: SIMETHICONE 80 MG TAB.CHEW PO (06:50)
[2024-11-22] MEDS: INFLUENZA TRIVALENT VACCINE 45 MCG/0.5 ML SYRINGE (06:51)
[2024-11-22 08:00] VITALS: BP 105/73; PULSE 94; RESP 18; TEMP 36.4; O2SAT 96
--- NOTE | 2024-11-22 08:48 | P.PNAN_ITS ---
Anes - Prog Note Post-Op Date/Time: 11/22/24 08:48 Cardiovascular status: normal Respiratory status: normal Airway patency: baseline Mental status: baseline Post-Op hydration status: normal Vital Signs: Last Vital Signs Temp 36.4 C 11/22/24 04:15 Pulse 60 11/22/24 04:15 Resp 16 11/22/24 04:15 BP 102/60 11/22/24 04:15 Pulse Ox 96 11/22/24 04:15 O2 Del Method Room Air 11/21/24 20:00 O2 Flow Rate 2 11/21/24 09:45 Pain Score (VAS): 11/17 I/O: Intake & Output 11/21/24 11/22/24 11/22/24 23:59 07:59 15:59 Intake Total 240 Output Total 1200 350 Balance -960 -350 Laboratory Tests 11/22/24 04:20 11/22/24 04:20 WBC 16.2 H RBC 4.24 Hgb 13.3 Hct 40.1 MCV 94.6 MCH 31.4 MCHC 33.2 RDW 13.8 Plt Count 259 MPV 11.1 H Immature Gran % (Auto) 0.6 H Neut % (Auto) 85.3 H Lymph % (Auto) 9.1 L [place] % (Auto) 4.9 Eos % (Auto) 0.0 Baso % (Auto) 0.1 L Lymph # (Auto) 1.48 [place] # (Auto) 0.8 H Eos # (Auto) 0.0 Baso # (Auto) 0.0 Abs Immat Gran (auto) 0.09 H Absolute Neuts (auto) 13.9 H Absolute Nucleated RBC 0.000 Nucleated RBC % 0.0 Post-procedural complaints: none Patient Feedback: Patient satisfied with anesthetic care.
--- NOTE | 2024-11-22 09:16 | P.PNOB_ITS ---
ROOFER VINYL COATING - A/P Postoperative Procedures: Procedures Operation Date: 11/21/24 07:30 Actual Procedure Side Surgeon p Robotic Assisted Total Vaginal Hysterectomy with Bilateral Salpingectomy Bilateral Sav Hemphill MD Postoperative day: 1 Postoperative status: doing well Postoperative plan: discharge Time Spent With Patient Time: Total time spent is greater than 50% in coordination of care (as documented) at patient's floor/unit and/or counseling patient: Time with patient: less than 15 minutes ROOFER VINYL COATING- PN:Subj Post-Op Subjective Date/time seen: 11/22/24 09:16 Subjective: patient has no complaints, pain is well controlled and patient is tolerating oral intake Exam 2 Narrative: Inc c/d/i abdomen soft, nt, nd ROOFER VINYL COATING - PN: Obj Data Vital Signs Vital Signs: Vital Signs - 24 hr 11/21/24 09:30 11/21/24 09:45 11/21/24 10:20 Temperature 97 F L Pulse Rate 80 79 79 Respiratory Rate 18 16 16 Blood Pressure 125/69 121/70 116/71 Pulse Oximetry 95 98 97 Oxygen Delivery Nasal Cannula Nasal Cannula Oxygen Flow Rate 2 2 11/21/24 13:00 11/21/24 14:20 11/21/24 16:15 Temperature 98.1 F Pulse Rate 66 Respiratory Rate 16 Blood Pressure 107/60 Pulse Oximetry 96 Oxygen Delivery Room Air Room Air Oxygen Flow Rate 11/21/24 20:00 11/21/24 20:00 11/21/24 23:30 Temperature 97.5 F L 97.7 F Pulse Rate 60 54 L Respiratory Rate 18 18 Blood Pressure 107/65 104/64 Pulse Oximetry 96 96 Oxygen Delivery Room Air Oxygen Flow Rate 11/22/24 04:15 Temperature 97.6 F Pulse Rate 60 Respiratory Rate 16 Blood Pressure 102/60 Pulse Oximetry 96 Oxygen Delivery Oxygen Flow Rate Intake/Output Intake/Output: Intake & Output 11/19/24 11/20/24 11/21/24 11/22/24 23:59 23:59 23:59 23:59 Intake Total 1290 Output Total 2050 350 Balance -760 -350 Meds/Results Medications: Active Medications Generic Name Dose Route Start Last Admin Trade Name Freq PRN Reason Stop Dose Admin Acetaminophen 1,000 mg 11/21/24 12:00 11/22/24 06:48 Acetaminophen 500 Mg Tablet PO 1,000 mg Q6HR BRIDGER Administration Docusate Sodium 100 mg 03/14/25 10:01 11/22/24 06:50 Docusate Sodium 100 Mg Capsule PO 100 mg BID BRIDGER Administration Enoxaparin Sodium 40 mg 11/21/24 10:01 11/22/24 06:50 Enoxaparin 40 Mg/0.4 Ml Syringe SUB-Q 40 mg DAILY BRIDGER Administration Dextrose/Lactated Ringer's 1,000 mls @ 125 mls/hr 11/21/24 10:01 11/21/24 10:37 Dextrose 5%/Lactated Ringers IV CONT 125 mls/hr .Q8H BRIDGER Administration Ibuprofen 600 mg 11/22/24 06:00 11/22/24 06:49 Ibuprofen 600 Mg Tablet PO 600 mg Q6HR BRIDGER Administration Naloxone HCl 0.1 mg 11/21/24 10:01 Naloxone Hcl 0.4 Mg/Ml Vial IV PUSH Q2M PRN Respiratory rate less than 10 Ondansetron HCl 4 mg 11/21/24 10:01 Ondansetron Inj 4 Mg/2 Ml Vial IV PUSH Q6H PRN Nausea And Vomiting Oxycodone HCl 5 mg 11/21/24 10:01 11/22/24 02:52 Oxycodone Hcl (*Crx) 5 Mg Tab Ir PO 5 mg Q4H PRN Administration Pain Rated 4-6 Oxycodone HCl 10 mg 11/21/24 10:01 Oxycodone Hcl (*Crx) 5 Mg Tab Ir PO Q6H PRN Pain Rated 7-10 Simethicone 80 mg 11/21/24 12:00 11/22/24 06:50 Simethicone 80 Mg Tab.Chew PO 80 mg TIDWM BRIDGER Administration Labs 11/22/24 04:20 Labs: Laboratory Results - last 24 hr 11/22/24 04:20 WBC 16.2 H RBC 4.24 Hgb 13.3 Hct 40.1 MCV 94.6 MCH 31.4 MCHC 33.2 RDW 13.8 Plt Count 259 MPV 11.1 H Immature Gran % (Auto) 0.6 H Neut % (Auto) 85.3 H Lymph % (Auto) 9.1 L [place] % (Auto) 4.9 Eos % (Auto) 0.0 Baso % (Auto) 0.1 L Lymph # (Auto) 1.48 [place] # (Auto) 0.8 H Eos # (Auto) 0.0 Baso # (Auto) 0.0 Abs Immat Gran (auto) 0.09 H Absolute Neuts (auto) 13.9 H Absolute Nucleated RBC 0.000 Nucleated RBC % 0.0
== END 2024-11-22 09:42 | disposition home or self-care (01) ==
LOC: ANHSURGERY 06:49 → ANHOB2 10:04
PROVIDERS: Visit Provider Obstetrics & Gynecology
PROC: (CPT 58552; principal; 2024-11-21 07:30)
DX: N88.8 Other specified noninflammatory disorders of cervix uteri (principal); R23.4 Changes in skin texture; F17.210 Nicotine dependence, cigarettes, uncomplicated; E66.01 Morbid (severe) obesity due to excess calories; Z68.41 Body mass index [BMI] 40.0-44.9, adult; Z23 Encounter for immunization; Z98.890 Other specified postprocedural states; Z98.891 History of uterine scar from previous surgery; Z80.42 Family history of malignant neoplasm of prostate; Z80.8 Family history of malignant neoplasm of other organs or systems; Z80.52 Family history of malignant neoplasm of bladder; Z80.41 Family history of malignant neoplasm of ovary; Z82.49 Family history of ischemic heart disease and other diseases of the circulatory system
CPT/HCPCS: 58552; S2900; 36415; 85025; 88307; 90471; 90656; 99199; A9270; G0008; J0690; J1100; J1650; J1885; J2250; J2405; J2704; J3010; J7120; J7121